=== PATIENT | male | born 1950 | race Caucasian/White ===

== ENCOUNTER → 2017-11-30 | Outpatient (CLI) | payer OTHER, MEDICARE ==
[~2017-11-30] MED LIST: IOPAMIDOL (ISOVUE 370) 100 ML BTL IV ONE
== END ==
LOC: FIMAGING 11:36
PROVIDERS: ATTEND Surgery
DX: I72.3 Aneurysm of iliac artery (principal)
CPT/HCPCS: 75635; Q9967

== ENCOUNTER 2018-03-14 07:15 | Inpatient (IN) | payer OTHER, MEDICARE ==
--- NOTE | 2018-03-14 07:03 | PDHPUP ---
History & Physical Update H&P update statement: This history and physical update is based on an assessment of the patient which was completed after admission or registration (within 24 hours), but prior to the surgery/procedure. H&P update: H&P reviewed & patient examined, no change in patient's condition since H&P completed
[~2018-03-14 07:15] MED LIST changes: +ACETAMINOPHEN 325 MG TAB PO PRN; -IOPAMIDOL (ISOVUE 370) 100 ML BTL IV ONE
[2018-03-14] MEDS ORDERED: GABAPENTIN 300 MG CAP PO ONE (09:03)
[2018-03-14] MEDS ORDERED: ceFAZolin 2 GM/DEXTROSE 100 ML IV ONE (09:03)
[2018-03-14] MEDS ORDERED: ACETAMINOPHEN 500 MG TAB PO ONE (09:03)
[2018-03-14] MEDS ORDERED: LR 1,000 ML IV ONE (09:04)
[2018-03-14] MEDS ORDERED: BACITRACIN 50,000 UNITS/10 ML SYR IRR ONE (09:31)
[2018-03-14] MEDS ORDERED: CHLORHEXIDINE GLUC HIBICLENS 118 ML BTL TP ONE (10:13)
[2018-03-14] MEDS ORDERED: BUPIVACAINE/EPI 0.25% 30 ML SDV ONE ×2 (10:13→12:28)
[2018-03-14] MEDS ORDERED: THROMBIN (BOVINE) 5,000 UNIT VIAL TP ONE ×2 (10:13→11:41)
[2018-03-14] MEDS ORDERED: ROCURONIUM 50 MG/5 ML VIAL ONE (10:35)
[2018-03-14] MEDS ORDERED: REMIFENTANIL HCL 1 MG VIAL ONE ×2 (10:35→12:15)
[2018-03-14] MEDS ORDERED: LIDOCAINE 2% 5 ML SDV ONE (10:35)
[2018-03-14] MEDS ORDERED: PROPOFOL/EMULSION 500 MG/50 ML BOTTLE IV ONE ×5 (10:35→14:38)
--- NOTE | 2018-03-14 10:47 | PDANEPAE ---
ANE History of Present Illness DJD, radiculopathy multilevel lower T through L spine, here for decompression and fusion ANE Past Medical History - Cardiovascular History Hx Hypertension: No Hx Arrhythmias: No Hx Chest Pain: No Hx Coronary Artery / Peripheral Vascular Disease: Yes Hx CHF / Valvular Disease: No Hx Palpitations: No Cardiovascular History Comment: BP RUNS LOW. 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 ARTFICLE KNEE CAPS 2005 ANE Review of Systems Review of Systems: - Exercise capacity METS (RN): 5 METS ANE Patient History - Allergies Allergies/Adverse Reactions: ciprofloxacin [From Cipro] Allergy (Verified 02/16/18 14:26) Rash - Home Medications Home Medications: Acetaminophen [Tylenol 325mg (*)] 325 mg PO DAILY PRN 02/16/18 [Last Taken 03/13] RX: Meloxicam 15 mg PO HS 02/16/18 [Last Taken 03/06/18] Tamsulosin HCl [Flomax 0.4 MG (*)] 0.4 mg PO HS 02/16/18 [Last Taken 03/13/18] - NPO status NPO Since - Liquids (Date): 03/13/18 NPO Since - Liquids (Time): 23:00 NPO Since - Solids (Date): 03/13/18 NPO Since - Solids (Time): 23:00 - Smoking Hx Smoking Status: Former smoker - Family Anes Hx Family Hx Anesthesia Complications: NONE ANE Labs/Vital Signs - Vital Signs Blood Pressure: 119/85 Heart Rate: 67 Respiratory Rate: 14 O2 Sat (%): 95 Height: 181.61 cm Weight: 83.915 kg ANE Physical Exam - Airway Neck exam: FROM Mallampati Score: Class 1 Mouth exam: normal dental/mouth exam - Pulmonary Pulmonary: no respiratory distress, no rales or rhonchi - Cardiovascular Cardiovascular: regular rate and rhythym, no murmur, rub, or gallop - ASA Status ASA Status: II ANE Anesthesia Plan Anesthesia Plan: general endotracheal anesthesia Total IV Anesthesia: Yes
[2018-03-14] MEDS ORDERED: MIDAZOLAM 2 MG/2 ML VIAL ONE (11:18)
[2018-03-14] MEDS ORDERED: MIDAZOLAM 2 MG/2 ML VIAL IVP ONE (11:19)
[2018-03-14] MEDS ORDERED: HYDROCODONE/APAP 5/325 TAB PO PRN ×2 (11:27→16:32)
[2018-03-14] MEDS ORDERED: morphINE PCA 30 MG/30 ML PCA IV PRN (11:27)
[2018-03-14] MEDS ORDERED: oxyCODONE IR 5 MG TAB PO PRN (11:27)
[2018-03-14] MEDS ORDERED: LACTULOSE 20 GM/30 ML UDCUP PO PRN (11:27)
[2018-03-14] MEDS ORDERED: ONDANSETRON 4 MG/2 ML VIAL IVP PRN (11:27)
[2018-03-14] MEDS ORDERED: MAGNESIUM HYDROXIDE 30 ML UDCUP PO PRN (11:27)
[2018-03-14] MEDS ORDERED: diphenhydrAMINE 25 MG CAP PO PRN (11:27)
[2018-03-14] MEDS ORDERED: METHOCARBAMOL 750 MG TAB PO PRN (11:27)
[2018-03-14] MEDS ORDERED: NALOXONE HCL 0.4 MG/ML INJ IVP PRN ×2 (11:27→16:32)
[2018-03-14] MEDS ORDERED: HYDROmorphONE/DILAUDID 1 MG/ML INJ IVP PRN (11:27)
[2018-03-14] MEDS ORDERED: ONDANSETRON DISINTEGRATING 4 MG TAB PO PRN (11:27)
[2018-03-14] MEDS ORDERED: BISACODYL 10 MG SUPP PR PRN (11:27)
[2018-03-14] MEDS ORDERED: POLYETHYLENE GLYCOL 3350 17 GM PKT PO PRN (11:27)
[2018-03-14] MEDS ORDERED: NS 1,000 ML IV SCH (11:30)
[2018-03-14] MEDS ORDERED: PROPOFOL 200 MG/20 ML VIAL ONE (11:33)
--- NOTE | 2018-03-14 13:40 | PDMN ---
Medical Necessity Medical necessity: 67 yo s/p MCG S820 Lumbar Fusion (TLIF w/ hardware removal) IP only
--- NOTE | 2018-03-14 15:57 | SOAPPROG ---
SOAP Progress Note Assessment/Plan: Post Op Visit: S: Awake and alert. NAD. Pt with expected lower back pain O: AFVSS/PERRLA/EOMI no droop CN 2-12 grossly intact +lt touch 5/5 BUE/BLE = CDI CAM in place A/P: 67 yo male that is s/p removal of hardware at L4/5 with new TLIF L2/3 and L3/4 with PSF L2-L5 -orders in place -call with any questions or concerns -take medications as directed -pt seen by Dr Perez as well -brace when out of bed -no bending or twisting Objective: Vital Signs Temp Pulse Resp BP Pulse Ox 36.6 C 67 14 119/85 H 95 03/14/18 09:58 03/14/18 11:18 03/14/18 11:18 03/14/18 11:18 03/14/18 11:18 ICD10 Worksheet Patient Problems: Problems Problem Status Onset Arthrodesis status Acute Lumbar radicular pain Acute Lumbar stenosis Acute - ICD10 Problem Qualifiers (1) Lumbar stenosis (2) Lumbar radicular pain (3) Arthrodesis status
--- NOTE | 2018-03-14 15:59 | POSTOPPROG ---
Post Op Note Date of Operation: 03/14/18 Surgeon: Anthony Perez Collector Of Internal Revenue: MAURI Cannon Anesthesiologist: DO Mauro Anesthesia: GET(General Endotracheal), Local (Specify) Pre-op Diagnosis: lumbar stenosis L2/3 and L3/4 Post-op Diagnosis: Lumbar stenosis L2/3 and L3/4 Indication: BLE pain Procedure: removal of L4/5 hardware with L2/3 and L3/4 TLIF with PSF L2-L5 Findings: see op report Inf/Abcess present in the surg proc area at time of surgery?: No Depth: Deep Incisional (Fascial) EBL: 100-500 Total fluids administered: see anesthesia record Complications: none Drains: Uziel Sanchez
[2018-03-14] MEDS ORDERED: CEFAZOLIN 1 GM/DEXTROSE/50 ML BAG IV ONE (16:11)
--- NOTE | 2018-03-14 16:12 | POSTANESTH ---
Post Anesthetic Evaluation Cardiovascular Status: Normal, Stable Respiratory Status: Normal, Stable Level of Consciousness/Mental Status: Can Participate in Eval, Moderately Sleepy Pain Control: Adequate, Prn Tx Ordered Nausea/Vomiting Control: Adequate, Prn Tx Ordered Complications Possibly Related to Anesthesia: None Noted
[2018-03-14] MEDS ORDERED: LR 500 ML IV PRN (16:32)
[2018-03-14] MEDS ORDERED: PROMETHAZINE HCL 25 MG/ML INJ IVP PRN (16:32)
[2018-03-14] MEDS ORDERED: HYDROmorphONE/DILAUDID 2 MG/ML INJ IVP PRN (16:32)
[2018-03-14] MEDS ORDERED: DIAZEPAM 5 MG/ML 1 ML SYR IVP PRN (16:32)
[2018-03-14] MEDS ORDERED: MEPERIDINE 25 MG/0.5 ML AMP IVP PRN (16:32)
[2018-03-14] MEDS ORDERED: PROMETHAZINE HCL 25 MG/ML INJ ONE (17:03)
[2018-03-14] MEDS ORDERED: ONDANSETRON 4 MG/2 ML VIAL ONE (17:42)
[2018-03-14] MEDS ORDERED: ceFAZolin 2 GM/DEXTROSE 100 ML IV SCH (18:00)
--- NOTE | 2018-03-14 19:01 | GOP ---
DATE OF OPERATION: 03/14/2018 SURGEON: Oscar Perez MD NEUROSURGEON: Oscar Perez MD RN DISCHARGE: Macario Cannon PA-C PREOPERATIVE DIAGNOSIS: Adjacent segment disease L2-3, 3-4 above a prior fusion at L4-5, bilateral l umbosacral radiculopathy. Spinal stenosis L2-3, 3-4, mild degenerative scoliosis L2-3, 3-4. POSTOPERATIVE DIAGNOSIS: Adjacent segment disease L2-3, 3-4 above a prior fusion at L4-5, bilateral lumbosacral radiculopathy. Spinal stenosis L2-3, 3-4, mild degenerative scoliosis L2-3, 3-4. PROCEDURE PERFORMED: Removal of posterior nonsegmental instrumentation at L4-5 (72692), posterolater al and intervertebral arthrodesis L2-3, L3-4 (18403, [id number]), posterior segmental instrumentation L2, L3, L4, L5 (79999), spinal stereotactic, same incision bone graft harvest, microscope, placement of b iomechanical intervertebral device L2-3, 3-4. FINDINGS: ESTIMATED BLOOD LOSS: 250 cc. INDICATIONS: The patient is a 67-year-old gentleman who had a prior successful fusion at L4-5 with S tryker instrumentation. He did well from this for many years and developed recurrent symptoms in bot h legs and had developed adjacent segment stenosis at L2-3, 3-4. He also had the development of a ri ght concave scoliotic curve above the fusion at 2-3, 3-4. There was some evidence of facet arthropat hy and may be a very, very mild spondylolisthesis at L5-S1 with left greater than right facet arthrop athy at that level, but there were really no compressive lesions at L5-S1. I suggested a 2 level TLI F at 2-3, 3-4. I saw no reason to consider including L5-S1 given that there was no evidence of compr ession. The risk of continued symptoms, nerve injury, spinal fluid leak, and the possible need for f uture surgery including surgery at the L5-S1 level was discussed. He knew this may become necessary in time and that an L2-3, 3-4 fusion seemed like most reasonable smaller approach to try to fix this problem. DESCRIPTION OF PROCEDURE: The patient was taken to the operating room, placed in supine position. G eneral anesthesia was begun. He was flipped prone onto the Uziel table. Care was taken to pad all points of contact. His back was sterilely prepped and draped in usual fashion. A localizing x-ray was taken. We made a midline incision from L2-3 down through the L4-5 level. The subcutaneous tissu e was dissected using a plasma blade down the lamina at L2-3 and the prior hardware at L4-5 was expos ed. We removed the hardware without difficulty. It was [place] hardware and there was evidence of s olid bony union at L4-5. We denuded the hypertrophic facet joints at L2-3, 3-4. We preserved comple tely the L1-2 facet joint rostrally. We attached the Stealth reference frame to the spinous process and performed an O-arm spin and using frame the Stealth stereotaxy, placed pedicle screws bilaterally at L2, L3, L4, and L5. We performed another O-arm spin. All the screws were in excellent position. There was no evidence of breach of the pedicle. They all stimulated at 20 milliamps or greater, an d they were considered acceptable from this perspective. We took 90 mm rods, placed them down over t he screws, distracted on the right more so than the left and got reduction of the degenerative scolio sis above and right-sided concavity. The spine looked very straight through the area of the surgery. We final tightened the cap screws according to the company specification, removed all the soft tiss ue in the bone from the spinous process of L2 and L3, harvested the entire L3 spinous process and the inferior L2 spinous process. We drilled bilateral laminas and harvested this bone for autologous gr afting purposes at L2-3, L3-4. We decompressed the thecal sac bilaterally at L2-3, 3-4, and got grea t decompressions on each side. On the left side, we removed the 2-3, 3-4 facet joint completely. In terestingly, on the left at L2-3, there was really significant prolapse of the disk itself up into th e left L3 root at the L2-3 level. This was seen on the MRI, but it was much more impressive in the O R. This area was completely decompressed. After decompressing bilaterally at 2-3, 3-4 in the left f oramen at 2-3, 3-4, we then swept the L3 nerve medially, incised the disk, removed the disk and the c artilaginous endplates. We swept the L4 nerve root medially at the L3-4 level and removed the disk a nd the cartilaginous endplates completely. His bone was a little softer than I would have expected, but it was not especially concerning. We removed the disk without destroying the bony endplates. We roughened the subchondral bone to create arthrodesis and packed each of the disk spaces with bone au tograft and BMP. We had a large amount of bone autograft. We sized them with the Popcorn5 elevate spacers, chose 7 x 28 mm devices, inserted them at both levels and expanded them according to company specification. Final x-rays were taken. The devices were in great position. We then decorticated all the remaining bone posterolaterally bilaterally at L2-3, 3-4, placed bone autograft and BMP poste rolaterally bilaterally at L2-3, 3-4. A subfascial drain was placed. We then closed the incision in multiple layers using Vicryl sutures. A running PDS was placed in the skin itself. The patient was reversed from anesthesia, extubated, and transferred to recovery room in stable condition. There we re no complications. COMPLICATIONS: None. /[id number]/MODL
[2018-03-14 19:28] LABS: PLATELET COUNT 186 10^3/uL (150-400)
[2018-03-14] MEDS ORDERED: TAMSULOSIN HCL 0.4 MG CAP PO SCH (21:00)
[2018-03-14] MEDS: ceFAZolin 2 GM/DEXTROSE 100 ML IV SCH (22:16)
[2018-03-14] MEDS: ACETAMINOPHEN 500 MG TAB PO SCH (22:19)
[2018-03-14] MEDS: GABAPENTIN 300 MG CAP PO SCH ×2 (22:20→22:25)
[2018-03-15] MEDS: FAMOTIDINE 20 MG TAB PO SCH ×3 (00:25→21:30)
[2018-03-15] MEDS: ACETAMINOPHEN 500 MG TAB PO SCH ×4 (00:25→21:30)
[2018-03-15] MEDS: SENNOSIDES/DOCUSATE SODIUM TAB PO SCH ×3 (00:25→21:47)
[2018-03-15] MEDS: GABAPENTIN 300 MG CAP PO SCH ×3 (05:19→21:30)
[2018-03-15 05:48] LABS: PLATELET COUNT 170 10^3/uL (150-400)
[2018-03-15] MEDS: ceFAZolin 2 GM/DEXTROSE 100 ML IV SCH (05:48)
--- NOTE | 2018-03-15 07:11 | NEUSURGPN ---
Date of Surgery: 03/14/18 Post Op Day: 1 Assessment/Plan: Assessment: 67 yo male that is s/p removal of hardware at L4/5 with new TLIF L2/ 3 and L3/4 with PSF L2-L5 POD #1 Plan -s/p TLIF L2/3 and L3/4 with reinstrumentation L2-L5: pt states that lower back is sore but legs feel better overall -pt had some post op nausea and needed closer watch after surgery-better this am -plan for transfer to floor -minimize pain medications due to prior history of urine retention post op -RN to remove balderas this am -work on pain control -PT/OT ordered -orders in place -call with any questions or concerns -take medications as directed -post op xrays pending -pt seen by Dr Perez as well -brace when out of bed -no bending or twisting Subjective: Awake and alert. NAD. Eating/drinking. No mohr/neck/chest/abd or gu complaints. No f/c/n/v/d. Objective: AAO x 3, PERRLA/EOMI no droop CN 2-12 grossly intact +lt touch 5/5 BUE/BLE = CDI CAM in place Neuro Check Frequency: per routine Urinary Catheter in Place: Yes Urinary Catheter Indication: Other (Use Comment) (to be removed this am) Catheter Insertion Date: 03/14/18 - Physician Discussed Patient with : Chris Patient Seen by : Chris Neurosurgery Physical Exam - Vitals, I&O, Labs I and O 03/14/18 03/15/18 03/16/18 05:59 05:59 05:59 Intake Total 3145 100 Output Total 2105 Balance 1040 100 Weight 83.915 kg Intake: Oral (ml) 450 IV Intake (ml) 2000 IV Infused (ml) 695 100 Ns 1,000 ml @ 75 mls/hr 595 IV CONT ROXY Rx#: [id number] ceFAZolin 2 GM/DEXTROSE 100 100 100 ml @ 200 mls/hr IV Q8H ROXY Rx#:[id number] Output: Urine (ml) 1225 Catheter 1225 Estimated Blood Loss (ml) 250 Emesis (ml) 200 CAM Drain Output (ml) 430 Left Back Uziel Sanchez 430 Vital Signs Temp Pulse Resp BP Pulse Ox 38.4 C H 58 L 14 102/64 94 03/15/18 04:00 03/15/18 06:00 03/15/18 06:00 03/15/18 06:00 03/15/18 06:00 Laboratory Results 03/15/18 05:20 03/15/18 05:20 ICD10 Worksheet Patient Problems: Problems Problem Status Onset Arthrodesis status Acute Lumbar radicular pain Acute Lumbar stenosis Acute - ICD10 Problem Qualifiers (1) Lumbar stenosis (2) Lumbar radicular pain (3) Arthrodesis status
[2018-03-15] MEDS: TAMSULOSIN HCL 0.4 MG CAP PO SCH (08:27)
--- NOTE | 2018-03-15 12:38 | ASMTCASEMG ---
Living Arrangements What is your living Answers: With Spouse arrangement? Who do you live with? Type Of Residence What kind of residence do Answers: House you live in? Discharge Plan Comments Coordination Status Comments Notes: Patient is a 67yo male who is being admitted for a 2 level TLIF surgical proedure as treatment for lower back and leg pain that is impairing his ability to walk. OT/PT evals have been ordered. Patient is retired and has been an avid hiker. D/C plan TBD. CM will follow. Date Signed: 03/15/2018 12:37 PM Electronically Signed By:Mirella Lawson LCSW
--- NOTE | 2018-03-15 12:43 | POSTANESTH ---
Post Anesthetic Evaluation Cardiovascular Status: Normal, Stable Respiratory Status: Normal, Stable Level of Consciousness/Mental Status: Can Participate in Eval, Alert and Oriented Pain Control: Adequate, Prn Tx Ordered Nausea/Vomiting Control: Adequate, Prn Tx Ordered Complications Possibly Related to Anesthesia: None Noted (Called by PACU around 1730 DOS for somnolence. Had received 6.25mg phenergan prior to change in MS. All medications reviewed via phone. Prior to my leaving the recovery room earlier that afternoon pt was alert and oriented but mildly sleepy and had an intact neuro exam. He would wake for nsg in recovery with intact neuro exam and had +5/5 strength BUE/BLE but would fall right back to sleep. We waited an hour and only mild improvements prompted me to order an ABG, CBC and BMP and touch base with Chris and Conrad Cannon for a step down bed overnight. Asked Dr. Fernandez to pysically see the patient and touch base with me. He saw nothing unusual on exam other than drowsiness and did not order anything further. Checked back an hour later, lab normal, at bedside and more improvement in mental status. Pt transferred to step down without complication Today, saw patient and to discuss post-operative course. My suspicion is the phenergan and, although not a true allergy, they agreed they would like to avoid the med in the future. We discussed all questions they had and future care. They were satisfied and comfortable with the care they received here.)
[2018-03-15] MEDS: DIAZEPAM 2 MG TAB PO PRN ×2 (16:13→21:30)
[2018-03-16] MEDS: ACETAMINOPHEN 500 MG TAB PO SCH (05:46)
[2018-03-16] MEDS: GABAPENTIN 300 MG CAP PO SCH (05:46)
--- NOTE | 2018-03-16 07:08 | NEUSURGPN ---
Date of Surgery: 03/14/18 Post Op Day: 2 Assessment/Plan: Assessment: 67 yo male that is s/p removal of hardware at L4/5 with new TLIF L2/ 3 and L3/4 with PSF L2-L5 POD #2 Plan - neuro stable - pain controlled with Tylenol during the day and Oxycodone qhs - has been able to urinate, although with some burning sensation this morning. Will obtain a UA to rule out a UTI - postop L-spine x-rays with hardware intact - PT/OT - Remove CAM drain today - SCDs/TEDs, Lovenox - Dispo: Hopefully home later this afternoon if continues to progress well Discussed with Dr. Perez. Subjective: Having localized back pain. No LE symptoms. Objective: Awake. Alert. PERRL. EOMI Facial expression symmetrical Muscle strength full at 5/5 Sensation intact Urinary Catheter in Place: No Catheter Insertion Date: 03/14/18 - Physician Discussed Patient with : Chris Neurosurgery Physical Exam - Vitals, I&O, Labs I and O 03/15/18 03/16/18 03/17/18 05:59 05:59 05:59 Intake Total 3145 1300 Output Total 2105 420 Balance 1040 880 Weight 83.915 kg Intake: Oral (ml) 450 1200 IV Intake (ml) 2000 IV Infused (ml) 695 100 Ns 1,000 ml @ 75 mls/hr 595 IV CONT ROXY Rx#: [id number] ceFAZolin 2 GM/DEXTROSE 100 100 100 ml @ 200 mls/hr IV Q8H ROXY Rx#:[id number] Output: Urine (ml) 1225 175 Catheter 1225 175 Estimated Blood Loss (ml) 250 Emesis (ml) 200 CAM Drain Output (ml) 430 245 Left Back Uziel Sanchez 430 245 Other: Intake Quantity Yes Sufficient Number of Voids Toilet 1 Vital Signs Temp Pulse Resp BP Pulse Ox 36.7 C 63 16 103/59 L 89 L 03/16/18 04:00 03/16/18 04:00 03/16/18 04:00 03/16/18 04:00 03/16/18 04:00 Laboratory Results 03/15/18 05:20 03/15/18 05:20 ICD10 Worksheet Patient Problems: Problems Problem Status Onset Arthrodesis status Acute Lumbar radicular pain Acute Lumbar stenosis Acute
[2018-03-16] MEDS: FAMOTIDINE 20 MG TAB PO SCH (08:26)
[2018-03-16] MEDS: SENNOSIDES/DOCUSATE SODIUM TAB PO SCH (08:27)
[2018-03-16] MEDS: TAMSULOSIN HCL 0.4 MG CAP PO SCH (08:27)
[2018-03-16 11:23] VITALS: BP 112/73
--- NOTE | 2018-03-16 13:31 | ASMTLACE ---
DELIAE Length of stay for Answers: 3 days current admission Acuity / Level of Answers: Yes Care: Did the patient have an inpatient admission? Comorbidities - select Answers: Coronary Artery Disease all that apply Opioid dependence / Chronic pain # of Emergency department Answers: 0 visits in the last 6 months Score: 12 Date Signed: 03/16/2018 01:30 PM Electronically Signed By:GRISEL Paul
--- NOTE | 2018-03-16 13:31 | ASMTCMCOM ---
CM Note CM Note Notes: Pt medically stable for d/c, no CM d/c needs identified. PT/OT rec home. Date Signed: 03/16/2018 01:31 PM Electronically Signed By:GRISEL Paul
[2018-03-17] MEDS ORDERED: ENOXAPARIN 40 MG/0.4 ML SYR SC SCH (09:00)
== END 2018-03-16 12:11 | disposition home or self-care (01) | DRG 455 ==
LOC: F3N 08:54 → F2N 21:13 → F3N 03-15 16:16
PROVIDERS: ADMIT Neurological Surgery; ATTEND Neurological Surgery
PROC: 0SG10AJ Fusion of 2 or more Lumbar Vertebral Joints with Interbody Fusion Device, Posterior Approach, Anterior Column, Open Approach (ICD-10-PCS; principal; 2018-03-14 11:00)
PROC: 00NY0ZZ Release Lumbar Spinal Cord, Open Approach (ICD-10-PCS; principal; 2018-03-14 11:00)
PROC: 0ST20ZZ Resection of Lumbar Vertebral Disc, Open Approach (ICD-10-PCS; principal; 2018-03-14 11:00)
PROC: 4A1004G Monitoring of Central Nervous Electrical Activity, Intraoperative, Open Approach (ICD-10-PCS; principal; 2018-03-14 11:00)
PROC: 0SP30AZ Removal of Interbody Fusion Device from Lumbosacral Joint, Open Approach (ICD-10-PCS; principal; 2018-03-14 11:00)
PROC: 0SG1071 Fusion of 2 or more Lumbar Vertebral Joints with Autologous Tissue Substitute, Posterior Approach, Posterior Column, Open Approach (ICD-10-PCS; principal; 2018-03-14 11:00)
PROC: 8E0WXBZ Computer Assisted Procedure of Trunk Region (ICD-10-PCS; principal; 2018-03-14 11:00)
PROC: 01NB0ZZ Release Lumbar Nerve, Open Approach (ICD-10-PCS; principal; 2018-03-14 11:00)
DX: M48.061 Spinal stenosis, lumbar region without neurogenic claudication (principal); M54.17 Radiculopathy, lumbosacral region; M41.56 Other secondary scoliosis, lumbar region; Z98.1 Arthrodesis status; Z87.891 Personal history of nicotine dependence; Z85.821 Personal history of Merkel cell carcinoma; G25.3 Myoclonus
CPT/HCPCS: 97116-GP; 97161-GP; 97165-GO; 97530-GP; C1713; J0690; J2250; J2270; J2405; J2550; J2704

== ENCOUNTER → 2018-05-21 | Outpatient (CLI) | payer OTHER, MEDICARE ==
[~2018-05-21] MED LIST changes: -ACETAMINOPHEN 325 MG TAB PO PRN; +IOPAMIDOL (ISOVUE 370) 100 ML BTL IV ONE
== END ==
LOC: FIMAGING 11:19
PROVIDERS: ATTEND Surgery
DX: I71.4 Abdominal aortic aneurysm, without rupture (principal)
CPT/HCPCS: 75635; Q9967; 82565-PO